=== PATIENT | female | born 1940 | race Caucasian/White ===

== ENCOUNTER 2018-12-05 12:14 | Inpatient (IN) | payer MEDICARE ==
--- NOTE | 2018-12-05 12:41 | ED ---
Neurological HPI - HPI Summary HPI Summary: This patient is a 78 year old F presenting to [facility] by EMS accompanied by with a chief complaint of confusion and weakness on left side since 0745 on 12/05/18. Patients reports she could not remember anything. Pt has no stroke, no HTN, no diabetes. Pt received TPA at [facility]. Pt reports slight numbness on left side of face. - History of Current Complaint Chief Complaint: EDNeurologicalDeficit Stated Complaint: POSSIBLE CVA PER EMS Time Seen by Provider: 12/05/18 12:20 Hx Obtained From: Patient Onset/Duration: Started hours ago Timing: Constant Neurological Deficit Location: Facial Pain Intensity: 0 Pain Scale Used: 0-10 Numeric Character: Weak, Confusion Aggravating: Nothing Alleviating: Nothing Associated Signs and Symptoms: Positive: Memory Loss, Confusion, Numbness TPA Considered: Yes - Allergy/Home Medications Allergies/Adverse Reactions: Allergies Allergy/AdvReac Type Severity Reaction Status Date / Time adhesive tape Allergy Rash Verified 12/05/18 13:10 simvastatin Allergy Unknown Verified 12/05/18 13:10 Reaction Details Home Medications: Home Medications NK [No Home Medications Reported] 12/05/18 [History Confirmed 12/05/18] PMH/Surg Hx/FS Hx/Imm Hx Endocrine/Hematology History: Denies: Hx Diabetes Cardiovascular History: Denies: Hx Hypertension Sensory History: Denies: Hx Legally Blind - Surgical History Surgical History: Yes Surgery Procedure, Year, and Place: Both meniscus were repaired. Hysterectomy. Parathyroid removed. Appendix removed Infectious Disease History: No Infectious Disease History: Denies: Traveled Outside the [place] in Last 30 Days - Social History Occupation: Retired Lives: With Family Alcohol Use: Occasionally Hx Substance Use: No Substance Use Type: Reports: None Hx Tobacco Use: No Smoking Status (MU): Never Smoked Tobacco Review of Systems Negative: Fever Neurological: Other - pos - memory loss, confusion Positive: Weakness, Numbness - left side of face All Other Systems Reviewed And Are Negative: Yes Physical Exam - Summary Physical Exam Summary: GENERAL: Patient is a well-developed and nourished __(M/F)__ who is lying comfortable in the stretcher. Patient is not in any acute respiratory distress. HEAD AND FACE: Normocephalic EYES: PERRLA, EOMI x 2. EARS: Hearing grossly intact. MOUTH: Oropharynx within normal limits. NECK: Supple, trachea is midline, no adenopathy, no JVD, no carotid bruit. CHEST: Symmetric, no tenderness at palpation LUNGS: Clear to auscultation bilaterally. No wheezing or crackles. CVS: Regular rate and rhythm, S1 and S2 present, no murmurs or gallops appreciated. ABDOMEN: Soft, non-tender. Bowel sounds are normal. No abnormal abdominal pulsations. EXTREMITIES: Full ROM in all major joints, no edema, no cyanosis or clubbing. NEURO: Alert and oriented x 3. Speech is normal and follows commands. Drift in left lower extremity LT 10 seconds. SKIN: Dry and warm Triage Information Reviewed: Yes Vital Signs On Initial Exam: Initial Vitals Temp Pulse Resp BP Pulse Ox 98.4 F 66 18 135/71 96 12/05/18 12:27 12/05/18 12:27 12/05/18 12:27 12/05/18 12:27 12/05/18 12:27 Vital Signs Reviewed: Yes Diagnostics - Vital Signs Vital Signs Temp Pulse Resp BP Pulse Ox 12/05/18 12:27 98.4 F 66 18 135/71 96 - Laboratory Result Diagrams: 12/06/18 06:05 12/06/18 07:05 Lab Statement: Any lab studies that have been ordered have been reviewed, and results considered in the medical decision making process. NIH Scale - NIH Scale Level of Consciousness: Alert/Keenly Responsive Ask Patient the Month and His/Her Age: Both Correct Ask Pt to Open/Close Eyes and Packaging Sales Consultant/Release Non-Paretic Hand: Both Correctly Best Gaze (Only Horizontal Eye Movement): Normal Visual Field Testing: No Visual Loss Facial Paresis-Pt to Smile & Close Eyes or Grimace Symmetry: Normal/Symmetrical Motor Function - Right Arm: No Drift-Holds 10 Seconds Motor Function - Left Arm: No Drift-Holds 10 Seconds Motor Function - Right Leg: No Drift-Holds 10 Seconds Motor Function - Left Leg: Drifts LT 10 seconds Limb Ataxia-Must be out of Proportion to Weakness Present: Absent Sensory (Use Pinprick to Test Arms/Legs/Trunk/Face): Normal Best Language (Describe Picture, Name Items): No Aphasia Dysarthria (Read Several Words): Normal Extinction and Inattention: No Abnormality Total Score: 1 Course/Dx - Course Course Of Treatment: This patient is a 78 year old F presenting to [facility] by EMS accompanied by with a chief complaint of confusion and weakness on left side since 0745 on 12/05/18. Pt received TPA at [facility]. Physical Exam Findings was nml except for drift in left lower extremity. Case discussed with Dr. Landeros and Dr. Quinonez. The patient will be admitted. The patient agrees with this plan - Diagnoses Provider Diagnoses: Stroke - Physician Notifications Discussed Care Of Patient With: Jesus Landeros Time Discussed With Above Provider: 12:40 Instructed by Provider To: Other - Discussed pt's case with Dr. Landeros, who accepts pt. Discussed pt's case with Dr. Quinonez. Discharge - Sign-Out/Discharge Documenting (check all that apply): Patient Departure - Admit Patient Received Moderate/Deep Sedation with Procedure: No - Discharge Plan Condition: Good Disposition: ADMITTED TO [facility] - Billing Disposition and Condition Condition: GOOD Disposition: Admitted to [facility] - Attestation Statements Document Initiated by Scribe: Yes Documenting Scribe: Emy Johnson Provider For Whom Celinee is Documenting (Include Credential): Dr. Betsy Scherer Scribchapo Attestation: IEmy, scribed for Dr. Betsy Scherer on 12/06/18 at 0808. Scribe Documentation Reviewed: Yes Provider Attestation: The documentation as recorded by the Emy faulkner accurately reflects the service I personally performed and the decisions made by me, Dr. Betsy Scherer Status of Scribe Document: Viewed
[2018-12-05] MEDS ORDERED: Acetaminophen TAB* 325 MG PO PRN (15:40)
--- NOTE | 2018-12-05 18:05 | HP ---
ADMISSION HISTORY AND PHYSICAL: DATE OF ADMISSION: 12/05/18 REASON FOR ADMISSION: Possible acute stroke. HISTORY OF PRESENT ILLNESS: This patient is a 78-year-old white female with no significant past medical history who experienced acute onset of confusion this morning after arising from sleep and was brought to the emergency room at [facility] where the diagnosis of possible CVA was entertained and the patient was treated with tPA. The patient was subsequently sent here for further evaluation. By the time the patient arrived in the emergency department , she was oriented and not confused. The patient denies any headache, recent trauma or history of hypertension, or cardiopulmonary disease. OUTPATIENT MEDICATIONS: None. The patient on no outpatient meds. ALLERGIES: SIMVASTATIN - unknown reaction, and ADHESIVE TAPE which causes a rash. SOCIAL HISTORY: The patient is and lives at home with her . There is no history of alcohol or illicit drug use and no family history of cerebrovascular disease. REVIEW OF SYSTEMS: Noncontributory. PHYSICAL EXAMINATION GENERAL: The patient is alert, oriented, and comfortable. VITAL SIGNS: Temp 97.7, blood pressure 130/70, heart rate 63 and regular, respirations 14, O2 sat 98% on nasal O2 at 2 L per minute. HEENT: Pupils in midposition and reactive. No facial asymmetry. NECK: Supple. CHEST: Lungs clear. CARDIAC EXAM: Without murmurs or rubs. ABDOMEN: Soft, nontender. EXTREMITIES: Warm, not cyanotic and not edematous. NEUROLOGIC EXAM: There was no focal weakness or sensory changes. DIAGNOSTIC STUDIES/LAB DATA: Admission laboratory: Labs from [facility] include a white count of 2.7, hemoglobin 13.6, hematocrit 42.2, platelet count of 190,000. INR of 1, PTT normal at 23. Sodium, potassium, and chloride normal. CO2 is 31. Total protein 7.1. Albumin 3.7. Liver enzymes normal. ECG and chest x-ray are pending. IMPRESSION: Cerebrovascular accident versus transient ischemic attack. A complete resolution of symptoms is encouraging. MANAGEMENT PLAN: We will observe carefully for evidence of bleeding and manage blood pressure and other vital signs as usually done in acute stroke cases. We will also schedule an MRI for the morning and we will evaluate for carotid disease. TIME SPENT: Critical care time spent with the patient: 35 minutes. [id number]/[facility] #: [id number] [facility] CENTERNely
--- NOTE | 2018-12-05 18:46 | CONS ---
NEUROLOGY CONSULTATION NOTE: DATE OF CONSULT: 12/05/18 CONSULTING PROVIDER: Dr. Jesus Landeros. REASON FOR CONSULT: Stroke, status post IV tPA from an outside hospital. CHIEF COMPLAINT: Sudden onset of memory loss and left-sided weakness. HISTORY OF PRESENT ILLNESS: Ms. Malou Neely is a 78-year-old female with history of dyslipidemia, who woke up in normal state of health at 7:30 a.m. She got up and went to the bathroom and then following that fiixed her cereal. At 7:45, she went up to call her [id number], but she forget her name. She did know her daughter- in-law's name was Gwen. She also could not remember her 's name. She alerted her who came in to assess her and found her to be slightly confused with mild left facial droop and left-sided weakness. She was not slurring her speech. She did not have any aphasia, but was not able to recognize names of family members. This lasted approximately 1 hour. She was rushed to [facility]. I was contacted by the PA at [facility] at 10:30 a.m. who requested to transfer the patient to [facility]. I informed the provider that if the patient's CT head was negative and she has no contraindications for IV tPA to proceed with IV tPA therapy. The provider at [facility] also consulted the [facility], who agreed with this treatment. The patient received IV tPA within a 3 hour window. I do not have any records from [facility] and there are no images available. However, the patient currently is feeling slightly better. She stated that her memory is back. She is able to recognize family members. However, she still has symptoms of mild left facial numbness and left-sided weakness. She did have headache, but that has since resolved. She described the headache as left-sided sharp pain, radiating to the left side of the neck, 5 /10 in severity and not associated with any photo or phonophobia. She does not have headaches often, but had been having headaches over the last 2 weeks. The patient does not take any antiplatelet therapy. NIH stroke scale is 3 for left-sided numbness and drift of the left arm and left leg. PAST MEDICAL HISTORY: Cholesterol, right shoulder bursitis removal, removal of the parathyroid, total hysterectomy, bilateral meniscus repair, and bladder repair. MEDICATIONS: None. ALLERGIES: ADHESIVE TAPE, SIMVASTATIN. She stated that she is intolerant to statin therapy due to myalgias. FAMILY HISTORY: No family history of stroke or seizures. REVIEW OF SYSTEMS: A 14-point review of systems was obtained and otherwise negative except for what was mentioned in the HPI. PHYSICAL EXAM: Vitals: Temperature of 98.4, pulse rate of 62, respiratory rate of 16, oxygen saturation of 95, blood pressure 135/71. General: Well- nourished, well- developed female, in no acute distress. She is resting on the bed near family members. Head: Normocephalic, atraumatic. Eyes: Conjunctivae /corneas were clear. Neck: Supple and symmetrical with no carotid bruit. Lungs are clear to auscultation bilaterally. She has non-labored breathing. Cardiovascular: Regular rate and rhythm with normal S1, S2. Extremities: Normal range of motion. Skin: No skin lesions or laceration. Psych: Affect is broad and normal mood. Easy to establish rapport. Neurological examination : Mental status: Awake, alert, and oriented to person, place, time, and general circumstances. Speech and language including expression, naming, repetition, and comprehension were assessed and found to be normal. Cranial Nerves: Normal confrontation test bilaterally. Pupils are mid range and reactive to light. Normal consensual response. Extraocular muscles were intact. No ptosis. Sensation is reduced on left side of the face. No facial droop. She is able to hear throughout the history process. Symmetrical palatal elevation. Normal strength against shoulder shrug bilaterally. Tongue symmetrical midline with no atrophy or fasciculation. Motor examination, no abnormal movements. She has positive pronator drift on the left. She has 5- strength to elbow extension and hip flexion on the left side, otherwise 5/5 strength throughout. Reflexes right/left: Brachioradialis 2/2 , biceps 2/2, triceps 2/2, patella 2/2, ankle 1/1, plantar flexor/flexor. Sensation is intact to light touch throughout except on the left side of the arm where she has reduced sensation to light touch. She has reduced vibration sensation on the left toe, measuring 6 sec and right toe measuring 11 sec. Coordination: Normal [id number], but reduced rapid alternating movements on the left. Gait and station narrow based. No ataxia. ASSESSMENT AND RECOMMENDATIONS: Ms. Malou Neely is a 78-year-old female with history of dyslipidemia, who presented to [facility] with acute onset amnesia and left hemapheresis. I suspect patient had a lacunar stroke involving the right parietal or thalamic region. If her symptoms resolved within the next 24 hours and her MRI studies were negative, then the diagnosis would be transient ischemic attack to the right ICA or PRINTED CIRCUIT BOARD PANELS TRIMMER distribution. The patient is status post IV tPA. She is seems to have tolerated the medication without any complication. Her NIH stroke scale is 3. I do not have any records from [facility]. The patient does not complain of any current headaches. RECOMMENDATIONS: Admit to the ICU for post tPA monitoring. Please follow the guidelines for vitals and neurochecks per post tPA protocol. Obtain a CT head without contract within 24 hours. Ordered MRI brain, MRA head, and MRA neck without contrast to evaluate for stroke and intracranial stenosis. Hold all antithrombotic therapy. DVT prophylaxis with SCDs. Please consult PT/OT/PAD EXTRACTOR TENDER to evaluate and treat. Dysphagia screen should be done at bedside. The patient has no evidence of atrial fibrillation; therefore, there is no indication for anticoagulation therapy. Continue telemetry. Please obtain transthoracic echo with bubble study to look for a PFO or a ventricular thrombus. Currently, the etiology is unknown, but if she does end up having a small lacunar stroke in the thalamus, it is most likely due to risk factors of small vessel disease including age, hypertension, and dyslipidemia. The patient is not diabetic. Please obtain hemoglobin A1c, TSH, and vitamin B12 levels. Keep her systolic blood pressure less than 180, but greater than 120. Please keep her blood glucose between 120 to less than 180. I discussed these recommendations with the bedside nurse as well as the family at bedside, explaining to them the process of post tPA evaluation and monitoring. The family's questions were answered to the best of my abilities. I will continue to follow. Critical care time spent 50 minutes. [id number]/[facility] #: [id number] EVANGELINA
[2018-12-06 06:23] LABS: Hematocrit 40 % (35-47); Hemoglobin 13.4 g/dL (12.0-16.0); Mean Corpuscular HGB Conc 34 g/dL (31-36); Mean Corpuscular Hemoglobin 32 pg (27-31); Mean Corpuscular Volume 94 fL (80-97); Mean Platelet Volume 9.1 fL (7.4-10.4); Platelet Count 190 10^3/uL (150-450); Red Blood Count 4.25 10^6 /uL (3.70-4.87); Red Cell Distribution Width 13 % (10-15)
[2018-12-06 06:27] LABS: INR 1.09 (0.82-1.09)
[2018-12-06 06:37] LABS: ALT 18 U/L (7-52); Albumin 4.1 g/dL (3.2-5.2); Albumin/Globulin Ratio 1.6 (1-3); Alkaline Phosphatase 78 U/L (34-104); BUN/Creatinine Ratio 24.1 (8-20); Blood Urea Nitrogen 14 mg/dL (6-24); CO2 Carbon Dioxide 28 mmol/L (22-32); Calcium 9.4 mg/dL (8.6-10.3); Chloride 106 mmol/L (101-111); EGFR Non-African American 100.8 (>60); Globulin 2.5 g/dL (2-4); Glucose 97 mg/dL (70-100); Sodium 141 mmol/L (135-145); Total Protein 6.6 g/dL (6.4-8.9)
[2018-12-06 06:46] LABS: Anion Gap 7 mmol/L (2-11)
[2018-12-06] MEDS ORDERED: Famotidine TAB* 20 MG PO SCH (09:00)
--- NOTE | 2018-12-06 11:53 | PN ---
Subjective Date of Service: 12/06/18 Length of Stay: 1 Days Neurology is following for TIA. Interval History: She is sitting comfortable. She noticed complete resolution of symptoms last night. She denied any headaches, visual disturbance, or paresthesia. She denied any memory problems. - MRI brain without contrast completed on 12/06/2018: no acute intracranial abnormality. Nonspecific white matter changes involving the left judy and subcortical area. - MRA head without contrast completed on 12/06/2018: No acute intracranial abnormality. - TTE: normal EF. No PFO. Review of Systems: Denied CP, SOB, or palpitations. Objective Active Medications: Acetaminophen (Tylenol Tab*) 650 mg PO Q4H PRN PRN Reason: FEVER Famotidine (Pepcid Tab*) 20 mg PO DAILY MIYA Last Admin: 12/06/18 11:40 Dose: Not Given Vital Signs 12/05/18 12/05/18 12/05/18 12:23 12:27 12:57 Temperature 98.4 F Pulse Rate 67 62 Respiratory 16 14 Rate Blood Pressure 135/71 119/67 (mmHg) O2 Sat by Pulse 97 95 Oximetry 12/05/18 12/05/18 12/05/18 13:00 13:08 13:27 Temperature Pulse Rate 65 Respiratory 13 15 18 Rate Blood Pressure 140/82 131/72 (mmHg) O2 Sat by Pulse 97 Oximetry 12/05/18 12/05/18 12/05/18 13:57 14:01 14:19 Temperature 97.7 F Pulse Rate 65 Respiratory 16 14 20 Rate Blood Pressure 133/66 148/73 (mmHg) O2 Sat by Pulse 98 Oximetry 12/05/18 12/05/18 12/05/18 14:26 14:27 14:39 Temperature 97 F Pulse Rate 66 63 Respiratory 16 20 15 Rate Blood Pressure 133/66 119/67 148/73 (mmHg) O2 Sat by Pulse 96 97 Oximetry 12/05/18 12/05/18 12/05/18 14:45 14:54 15:00 Temperature Pulse Rate 60 64 Respiratory 22 17 14 Rate Blood Pressure 129/74 135/68 (mmHg) O2 Sat by Pulse 99 96 Oximetry 12/05/18 12/05/18 12/05/18 15:15 15:30 15:45 Temperature 97.7 F Pulse Rate 63 62 61 Respiratory 15 15 15 Rate Blood Pressure 136/73 131/73 126/73 (mmHg) O2 Sat by Pulse 98 97 98 Oximetry 12/05/18 12/05/18 12/05/18 16:00 16:15 16:30 Temperature 97.8 F 97.7 F Pulse Rate 63 75 75 Respiratory 15 20 12 Rate Blood Pressure 137/83 116/69 131/64 (mmHg) O2 Sat by Pulse 97 98 96 Oximetry 12/05/18 12/05/18 12/05/18 16:45 17:00 17:01 Temperature 97.6 F Pulse Rate 73 70 69 Respiratory 22 11 13 Rate Blood Pressure 117/68 117/70 (mmHg) O2 Sat by Pulse 96 97 97 Oximetry 12/05/18 12/05/18 12/05/18 17:15 17:30 17:37 Temperature 98.1 F Pulse Rate 65 67 Respiratory 10 20 Rate Blood Pressure 117/70 132/66 (mmHg) O2 Sat by Pulse 95 96 Oximetry 12/05/18 12/05/18 12/05/18 17:45 18:00 18:01 Temperature 98.1 F Pulse Rate 76 73 76 Respiratory 14 18 17 Rate Blood Pressure 117/71 120/63 (mmHg) O2 Sat by Pulse 95 96 96 Oximetry 12/05/18 12/05/18 12/05/18 18:15 18:25 18:30 Temperature 98.1 F Pulse Rate 66 76 Respiratory 13 10 Rate Blood Pressure 123/67 110/53 (mmHg) O2 Sat by Pulse 97 95 Oximetry 12/05/18 12/05/18 12/05/18 18:45 19:00 19:15 Temperature Pulse Rate 70 89 Respiratory 14 14 22 Rate Blood Pressure 119/69 134/82 (mmHg) O2 Sat by Pulse 94 96 Oximetry 12/05/18 12/05/18 12/05/18 19:20 19:30 20:00 Temperature 97.9 F Pulse Rate 73 67 Respiratory 16 26 Rate Blood Pressure 135/71 133/71 (mmHg) O2 Sat by Pulse 94 95 Oximetry 12/05/18 12/05/18 12/05/18 20:30 21:00 22:00 Temperature Pulse Rate 72 68 64 Respiratory 17 18 15 Rate Blood Pressure 132/74 124/66 110/69 (mmHg) O2 Sat by Pulse 95 93 95 Oximetry 12/05/18 12/05/18 12/06/18 23:00 23:14 00:00 Temperature 97.0 F Pulse Rate 63 61 Respiratory 10 8 Rate Blood Pressure 114/61 118/53 (mmHg) O2 Sat by Pulse 95 94 Oximetry 12/06/18 12/06/18 12/06/18 01:00 02:00 03:00 Temperature Pulse Rate 63 63 63 Respiratory 20 9 11 Rate Blood Pressure 106/58 114/60 125/68 (mmHg) O2 Sat by Pulse 97 96 96 Oximetry 12/06/18 12/06/18 12/06/18 03:57 04:00 05:00 Temperature 97.0 F Pulse Rate 59 65 Respiratory 12 15 Rate Blood Pressure 106/60 118/64 (mmHg) O2 Sat by Pulse 97 96 Oximetry 12/06/18 12/06/18 12/06/18 06:00 06:31 07:00 Temperature Pulse Rate 64 64 69 Respiratory 15 13 14 Rate Blood Pressure 113/69 120/75 (mmHg) O2 Sat by Pulse 96 96 96 Oximetry 12/06/18 12/06/18 12/06/18 07:02 07:30 08:00 Temperature 98.4 F Pulse Rate 64 58 Respiratory 16 16 Rate Blood Pressure 120/66 (mmHg) O2 Sat by Pulse 97 96 Oximetry 12/06/18 12/06/18 12/06/18 08:01 09:00 09:01 Temperature Pulse Rate 57 71 77 Respiratory 15 20 10 Rate Blood Pressure 122/66 (mmHg) O2 Sat by Pulse 94 96 97 Oximetry 12/06/18 12/06/18 12/06/18 10:00 11:00 11:01 Temperature Pulse Rate 76 63 63 Respiratory 16 9 21 Rate Blood Pressure 107/65 124/71 (mmHg) O2 Sat by Pulse 95 96 97 Oximetry Intake and Output Last 24 Hours 12/04/18 12/05/18 12/06/18 12/07/18 06:59 06:59 06:59 06:59 Intake Total 1320 150 Output Total 1650 1000 Balance -330 -850 Weight 151 lb 7.321 oz 151 lb 7.321 oz Intake: Oral 1320 150 Output: Urine 1650 1000 Other: Date of Last Bowel t Movement Estimated Stool Amount Medium Oxygen Devices in Use Now: None Neurology Exam: General: Well nourished, well developed, and in no acute distress HEENT: Normocephelic/atraumatic, sclera anicteric, mucous membranes moist Neck: Supple Chest: Clear to auscultation bilaterally Cardiovascular: Regular rate and rhythm without murmurs, rubs, gallops Extremities: No clubbing, cyanosis, or edema Neurological Findings: Awake, alert, and oriented to person, place, and time. Speech: fluent without dysarthria, repetition intact Cranial Nerve: PERRL, EOM intact, VFF, no nystagmus, face symmetric bilaterally Motor: s/s throughout, proximal and distal extremities x4 tone/bulk normal Sensation: intact to LT/PP bilaterally upper and lower extremities Deep Tendon Reflex: 2+ symmetric in the upper/lower extremities, Babinski - down going Finger to nose, rapid alternating movements intact without tremor, no dysdiadochokinesia Gait: intact with good arm swing and stride Result Diagrams: 12/06/18 06:05 12/06/18 07:05 Microbiology and Other Data: Microbiology 12/05/18 14:44 Nasal Screen MRSA (PCR) - Final Nasal Mrsa Not Detected Assessment/Plan 1. TIA to the right thalamic region - symptoms have resolved post IV tPA. MRI brain and MRA head are unremarkable. Carotid ultrasound showed no hemodynamic limited stenosis. 2D Echo was unremarkable with no evidence of PFO. The MRI brain was done close to 24 hours post IV tPA; therefore, repeat CT head was not done. SWI showed no ICH. Please discharge on aspirin 81 mg and Plavix 75 mg daily. Also start pravastatin 40 mg nightly. Added a lipid panel to yesterday's labs. We will contact her for a follow-up appointment in 4-6 weeks. Primary stroke prevention was discussed with the patient and spouse. NIHSS today is 0. 2. Dyslipidemia: intolerant to statin therapy, but she only tried high dose simvastatin in the past. The allergy is myalgia. She agreed to try pravastatin (low potent statin). If she cannot tolerate it, then we can discuss switching to Zetia with her PCP. I will sign off. Please contact me for any questions or concerns. Corbin Quinonez MD 12/06/2018
--- NOTE | 2018-12-06 13:40 | PN ---
Date of Service: 12/06/18 Critical Care Services: Patient had an uneventful evening. Is asymptomatic today. Vital Signs: Temp Pulse Resp BP SpO2 FiO2 98.5 F 62 16 110/60 94 Physical Exam: Gen:Alert, oriented, comfortable HEENT:Pupils midposition and reactive Lungs: Clear Extremities:No cyanosis or edema Neuro: No apparent motor or sensory deficits Fluid Balance (Past 24 Hours): 12/06/18 12/07/18 06:59 06:59 Intake Total 1320 150 Output Total 1650 1200 Balance -330 -1050 Weight 151 lb 151 lb Intake: Oral 1320 150 Output: Urine 1650 1200 Other: Date of Last Bowel t Movement Estimated Stool Amount Medium Labs: 12/06/18 12/06/18 12/06/18 06:05 06:05 06:05 WBC 4.0 RBC 4.25 Hgb 13.4 Hct 40 MCV 94 MCH 32 H MCHC 34 RDW 13 Plt Count 190 MPV 9.1 INR (Anticoag Therapy) 1.09 Sodium 141 Potassium TNP Chloride 106 Carbon Dioxide 28 Anion Gap 7 BUN 14 Creatinine 0.58 Est GFR ( Amer) 122.0 Est GFR (Non-Af Amer) 100.8 BUN/Creatinine Ratio 24.1 H Glucose 97 Calcium 9.4 Total Bilirubin 0.50 AST TNP ALT 18 Alkaline Phosphatase 78 Total Protein 6.6 Albumin 4.1 Globulin 2.5 Albumin/Globulin Ratio 1.6 12/06/18 07:05 WBC RBC Hgb Hct MCV MCH MCHC RDW Plt Count MPV INR (Anticoag Therapy) Sodium Potassium TNP Chloride Carbon Dioxide Anion Gap BUN Creatinine Est GFR ( Amer) Est GFR (Non-Af Amer) BUN/Creatinine Ratio Glucose Calcium Total Bilirubin AST TNP ALT Alkaline Phosphatase Total Protein Albumin Globulin Albumin/Globulin Ratio Studies: 1. MRI and MRA of head today: No evidence of injury. 2. Carotid ultrasound - no evidence of significant occlusive disease. 3. Cardiac ECHO: results pending. Nutrition: Oral diet Impression: Probable TIA (which has resolved). Plan: Discharge today. Followup per neurology service. Critical Care Time: 20 minutes
[2018-12-06 13:50] VITALS: BP 111/57
--- NOTE | 2018-12-06 13:56 | ECHO ---
*[facility]* [place] [address] Fax #: [phone] Transthoracic Echocardiogram Patient: Malou Neely : 1940 Study Date: 12/06/2018 Age: 78 Gender: F HR: 61 bpm Height: 65 in /165.1 cm BSA: 1.76 m^2 Weight: 150.7 lb /68.5 kg BMI: 25.1 kg/m^2 *Drapery Supervisor: Tennilel [facility] *Referring Physician: * Corbin Quinonez *Reading Physician: * Bel Stewart MD Indications: TIA. History: Risk factors: Dyslipidemia. Conclusions Summary: - Left ventricle: Systolic function is normal. The estimated ejection fraction is 55-60%. - Right ventricle: Systolic function is normal. - Atrial septum: A PFO is not demonstrated by color Doppler or agitated saline contrast. Negative bubble study. - Mitral valve: There is mild regurgitation. - Tricuspid valve: There is mild regurgitation. - Pulmonary arteries: The peak pressure during systole by Doppler is 21.0 mm Hg. - No prior echocardiogram to compare. Study data: Transthoracic echocardiogram. Procedure: Transthoracic echocardiography was performed. Image quality was good. A bubble study was performed. Images 68 & 69 Complete 2D, spectral Doppler, and color flow Doppler. Location: ICU Patient status: Inpatient. Patient room number: 5. Rhythm: Normal sinus rhythm. Findings Left ventricle: The cavity size is normal. Wall thickness is normal. Systolic function is normal. The estimated ejection fraction is 55-60%. Wall motion is normal; there are no regional wall motion abnormalities. There is no consistent Doppler evidence of clinically significant diastolic dysfunction. Right ventricle: The cavity size is normal. Systolic function is normal. Left atrium: The atrium is normal in size. Right atrium: The atrium is normal in size. Atrial septum: A PFO is not demonstrated by color Doppler or agitated saline contrast. Negative bubble study. Mitral valve: The valve is structurally normal. The leaflets are normal thickness. There is no evidence of stenosis. There is mild regurgitation. Aortic valve: The valve is structurally normal. The valve is trileaflet. The leaflets are normal thickness. There is no evidence of stenosis. There is no regurgitation. Tricuspid valve: The valve is structurally normal. There is no evidence of stenosis. There is mild regurgitation. Pulmonic valve: The leaflets are normal thickness. There is trace regurgitation. Aorta: The aortic root appears normal. The aortic arch appears normal. Pericardium: There is no significant pericardial effusion. Pulmonary arteries: The main pulmonary artery is normal-sized. Systolic pressure is within the normal range. Systemic veins: Inferior vena cava: The vessel is normal in size. There is (>= 50%) respiratory change in the IVC dimension. Measurements Left ventricle Value Ref Aortic valve continued Value Ref CAYETANO, LAX 4.0 cm 3.8 - 5.2 Peak v, S 1.31 m/sec ----- ESD, LAX 2.5 cm 2.2 - 3.5 VTI, S 30.0 cm ----- FS, LAX 36 % 27 - 45 Mean grad, S 4.0 mm Hg ----- PW, ED, LAX 0.7 cm 0.6 - 0.9 Peak grad, S 7.0 mm Hg ----- EF 66 % 54 - 74 E', lat gilbert, TDI 10.1 cm/sec >=10.0 Mitral valve Value R ef E/e', lat gilbert, 7 Peak E 0.72 m/sec ---- - TDI Peak A 0.88 m/sec ----- E', med gilbert, TDI 8.7 cm/sec >=7.0 Decel time 282 ms - ---- E/e', med gilbert, 8 Peak grad, D 2.0 mm Hg ---- - TDI Peak E/A ratio 0.8 ----- E', avg, TDI 9.4 cm/sec E/e', avg, TDI 8 <=14 Pulmonic valve Value R ef Peak v, S 0.81 m/sec ----- LVOT Value Ref Peak grad, S 3.0 mm Hg ----- Peak sabrina, S 0.83 m/sec Mean grad, S 1 mm Hg Tricuspid valve Value Ref TR peak v 2.3 m/sec <=2.8 Ventricular septum Value Ref Peak RV-RA grad, S 21 mm Hg ----- IVS, ED 0.8 cm 0.6 - 0.9 Aortic root Value Ref Right ventricle Value Ref Root diam 2.5 cm <4.0 CAYETANO, LAX 2.6 cm CAYETANO minor ax, A4C 2.9 cm 1.9 - 3.5 Ascending aorta Value Ref mid AAo AP diam, S 2.2 cm ----- Pressure, S 24 mm Hg Aortic arch Value Ref Left atrium Value Ref Arch diam 2.3 cm ----- AP dim, ES 2.80 cm 2.70 - 3.80 Decending aorta Value Ref ML dim, A4C 4.2 cm Lizz peak sabrina 0.57 m/sec ----- SI dim, A4C 5.1 cm Vol/bsa, ES, A/L 22 ml/m^2 16 - 34 Pulmonary artery Value Ref Pressure, S 21.0 mm Hg ----- Right atrium Value Ref SI dim, ES 4.5 cm 3.4 - 5.3 Inferior vena cava Value Ref ML dim, ES, A4C 3.6 cm 2.6 - 4.4 Diam 2.1 cm ----- Estimated RAP 3 mm Hg Aortic valve Value Ref Gilbert diam, ED 2.0 cm Legend: (L) and (H) lindsey values outside specified reference range. Prepared and electronically signed by Bel Stewart MD 12/06/2018 13:55
[2018-12-06 14:39] LABS: Cholesterol 194 mg/dL; HDL Cholesterol 55.2 mg/dL; LDL Cholesterol 124 mg/dL; Triglycerides 76 mg/dL
[2018-12-06] MEDS ORDERED: Aspirin 81 mg CHEW TAB* 81 MG TAB.CHEW PO SCH (15:00)
[2018-12-06] MEDS ORDERED: Clopidogrel TAB* 75 MG PO SCH (15:00)
--- NOTE | 2018-12-06 17:26 | DS ---
DISCHARGE SUMMARY: DATE OF ADMISSION: 12/05/18 DATE OF DISCHARGE: 12/06/18 HOSPITAL COURSE: The patient is a 78-year-old white female who was admitted yesterday because of transient episode of confusion. Admission diagnosis was acute cerebrovascular accident versus transient ischemic attack. The patient received tPA at [facility] and was transferred here. Following admission , the patient had an uneventful evening, and following day, CAT scans and MRIs of the head were all negative. Workup for carotid artery disease and patent foramen ovale were both negative. Final diagnosis was TIA. The patient was seen in consultation by neurology service and they recommended starting aspirin and Plavix. The patient was discharged with a prescription for Plavix. DISCHARGE DIAGNOSIS: Transient ischemic attack. DISCHARGE MEDICATIONS: 1. ASA: 81 mg daily. 2. Plavix: 75 mg daily. DISCHARGE PLAN: The patient will be seen in 4 -6 weeks by the neurology service. [id number] #: [id number] MTDD
[2018-12-06] MEDS ORDERED: Atorvastatin* 10 MG TAB PO SCH (21:00)
== END 2018-12-06 15:07 | disposition home or self-care (01) | DRG 69 ==
LOC: ED 12:14 → ICU 12:45
PROVIDERS: ADMIT Internal Medicine Critical Care Medicine; ATTEND Internal Medicine Critical Care Medicine
DX: G45.9 Transient cerebral ischemic attack, unspecified (principal); E78.5 Hyperlipidemia, unspecified; Z88.8 Allergy status to other drugs, medicaments and biological substances; Z91.048 Other nonmedicinal substance allergy status
CPT/HCPCS: 36415; 70544; 70551; 71045; 80053; 80061; 85027; 85610; 87641; 93306; 93880; 99285